=== PATIENT | female | born 1990 | race Caucasian/White ===

== ENCOUNTER 2017-09-08 10:10 | Inpatient (IN) | payer OTHER, BC ==
[~2017-09-08] VITALS: Ht 167.6 cm; Wt 75.9 kg
[2017-10-30] VITALS (47 sets, daily range): BP systolic 102–144; BP diastolic 56–100; PULSE 69–118; TEMP 98–98.5
[2017-10-30] MEDS ORDERED: PRENATAL (06:50)
[2017-10-30 07:40] LABS: BASO % 0.3 % (0.0-2.0); EOS # 0.1 (0.0-0.7); EOS % 0.5 % (0-4.0); GRAN # 9.1 (1.4-6.5); GRAN % 79.1 % (42.2-75.2); HEMATOCRIT 41.8 % (37.0-47.0); HEMOGLOBIN 14.7 g/dl (12.5-16.0); LYMPH # 1.5 (1.2-3.4); LYMPH % 13.2 % (20.0-51.0); MEAN CELL VOLUME 94 fl (80.0-100.0); MEAN CORPUSCULAR HEMOGLOBIN 33 pg (27.0-31.0); MEAN CORPUSCULAR HGB CONC 35 g/dl (33.0-37.0); MONO # 0.7 (0.1-0.6); MONO % 6.1 % (1.7-9.3); PLATELET COUNT 195 K/mm3 (130-400); RED BLOOD COUNT 4.47 M/mm3 (4.10-5.30); WHITE BLOOD COUNT 11.5 K/mm3 (4.8-10.8)
[2017-10-30] MEDS ORDERED: TYLENOL 500MG500 MG PO (07:40)
[2017-10-31 01:00] VITALS: BP 128/72; PULSE 87
[2017-10-31 07:00] VITALS: BP 110/68; PULSE 78; TEMP 97.3
[2017-10-31 11:30] VITALS: BP 105/67; PULSE 96; TEMP 98.2
[2017-10-31] MEDS ORDERED: MOTRIN 800800 MG/TAB PO (11:42)
[2017-10-31] MEDS ORDERED: PERCOCET 325 MG1 TA2 PO (11:42)
[2017-10-31 16:24] VITALS: BP 134/75; PULSE 16; TEMP 98
[2017-10-31 19:15] VITALS: BP 124/85; PULSE 91; TEMP 98.4
== END 2017-11-01 11:40 | disposition home or self-care (01) | DRG 775 ==
LOC: LDR 10-26 10:10 → OB 10-30 07:00
PROVIDERS: Obstetrics & Gynecology
PROC: 10E0XZZ Delivery of Products of Conception, External Approach (ICD-10-PCS; principal; 2017-10-30)
PROC: 0KQM0ZZ Repair Perineum Muscle, Open Approach (ICD-10-PCS; 2017-10-30)
PROC: 3E033VJ Introduction of Other Hormone into Peripheral Vein, Percutaneous Approach (ICD-10-PCS; 2017-10-30)
DX: O48.0 Post-term pregnancy (principal); O70.1 Second degree perineal laceration during delivery; O75.89 Other specified complications of labor and delivery; Z3A.40 40 weeks gestation of pregnancy; Z37.0 Single live birth
CPT/HCPCS: J2210; J2590; J7120

== ENCOUNTER 2019-12-30 07:07 | Inpatient (IN) | payer BC ==
[2019-12-30] VITALS (33 sets, daily range): BP systolic 97–144; BP diastolic 57–84; PULSE 72–117; TEMP 97.5–98.7
[~2019-12-30] VITALS: Ht 167.6 cm; Wt 76.4 kg
[~2019-12-30 07:07] MED LIST: MOTRIN 800800 MG/TAB PO; PERCOCET 325 MG1 TA2 PO; PRENATAL; TYLENOL 500MG500 MG PO
--- NOTE | 2019-12-30 07:10 | NUR ---
0710- Patient arrives ambulatory with spouse for scheduled induction of labor. Patient reports occasional contractions, denies ROM or vaginal bleeding, and reports normal movement. Patient changes into gown, EFM explained and applied. VS obtained. Reviewed plan of care for induction, patient denies questions and agrees. 0725- IV started in LFA, labs obtained. LR infusing per protocol. Assessment completed. Consents explained and signed. Patient denies questions. 0800- Reactive, category 1 FHR strip obtained. Pitocin started at 2 mU per protocol and order. Will continue to monitor. Call light in reach.
[2019-12-30] MEDS ORDERED: OSCAL 500 TAB500 MG PO (07:58)
--- NOTE | 2019-12-30 08:10 | NUR ---
Dr. Yu at bedside, reviews FHR strip. Discussing AROM, patient agrees. SVE per provider -0. AROM by Dr. Yu for small amount of clear fluid. Pericare given and patient updated on plan of care.
[2019-12-30 08:22] LABS: BASO % 0.4 % (0.0-2.0); EOS # 0.1 (0.0-0.7); EOS % 0.5 % (0-4.0); GRAN # 8.5 (1.4-6.5); GRAN % 75.8 % (42.2-75.2); HEMATOCRIT 36.7 % (37.0-47.0); HEMOGLOBIN 12.1 g/dl (12.5-16.0); LYMPH # 1.7 (1.2-3.4); MEAN CELL VOLUME 88 fl (80.0-100.0); MEAN CORPUSCULAR HEMOGLOBIN 29 pg (27.0-31.0); MEAN CORPUSCULAR HGB CONC 33 g/dl (33.0-37.0); MONO # 0.8 (0.1-0.6); MONO % 7.4 % (1.7-9.3); PLATELET COUNT 227 K/mm3 (130-400); RED BLOOD COUNT 4.17 M/mm3 (4.10-5.30); REDCELL DISTRIBUTION WIDTH-CV 14.2 % (11.5-14.5)
--- NOTE | 2019-12-30 10:20 | NUR ---
SVE /0. Patient requesting epidural at this time. LR bolus infusing, Jony Haney MEMBERSHIP SALES MANAGER notified.
--- NOTE | 2019-12-30 10:35 | NUR ---
1035- Patient sitting upright in bed for epidural placement. Jony Haney CLAIM TRAINEE at bedside. 1047- Test dose via epidural given per Jony Haney CLAIM TRAINEE. Patient tolerates well, no adverse reactions noted. See anesthesia record. 1050- Patient repositioned WL following epidural placement. Updated on plan of care, safety reviewed.
[2019-12-30] MEDS ORDERED: MOTRIN 800800 MG/TAB PO (12:18)
--- NOTE | 2019-12-30 12:42 | NUR ---
GUY AL/+2. Pericare given and Dr. Yu notified and requested for impending delivery. RN remains at bedside. Patient comfortable with epidural.
--- NOTE | 2019-12-30 13:10 | NUR ---
1310- Dr. Yu at bedside. SVE per provider 2. Lundberg catheter removed prior to pushing, patient assisted to footplates. Nursery RN to bedside. 1314- Patient begins pushing with contractions with physician at bedside. Moves vertex well. 1318- of viable male infant attended by Dr. Yu. to mother's abdomen, then to warmer for assessment. Care of to Alicia SIFUENTES. Apgars 8//9. 1320- Spontaneous delivery of placenta. Pitocin bolus started at 333ml/hr/protocol. Fundal massage by RN, moderate amount of free flow noted initally, WNL following massage. Second degree perineal laceration and bilateral labial lacerations repaired by physician, patient tolerates well. Pericare given and ice pack applied. Patient updated on plan of care and safety reviewed. Call light within reach.
[2019-12-31 08:10] VITALS: BP 122/81; PULSE 110; TEMP 98
--- NOTE | 2019-12-31 09:48 | NUR ---
Initial visit; Mom thanked for offering congratulations for the of her son. Stewarding Supervisor thanked family for choosing [facility].
[2019-12-31 12:00] VITALS: BP 112/65; PULSE 86; TEMP 97.4
== END 2019-12-31 15:30 | disposition home or self-care (01) | DRG 807 ==
LOC: LDR 07:07 → OB 07:07 → LDR 12:54 → OB 15:36
PROVIDERS: ADMIT Obstetrics & Gynecology
PROC: 10E0XZZ Delivery of Products of Conception, External Approach (ICD-10-PCS; principal; 2019-12-30)
PROC: 0KQM0ZZ Repair Perineum Muscle, Open Approach (ICD-10-PCS; 2019-12-30)
PROC: 0UQMXZZ Repair Vulva, External Approach (ICD-10-PCS; 2019-12-30)
PROC: 10907ZC Drainage of Amniotic Fluid, Therapeutic from Products of Conception, Via Natural or Artificial Opening (ICD-10-PCS; 2019-12-30)
PROC: 3E033VJ Introduction of Other Hormone into Peripheral Vein, Percutaneous Approach (ICD-10-PCS; 2019-12-30)
DX: O48.0 Post-term pregnancy (principal); Z37.0 Single live birth; O70.1 Second degree perineal laceration during delivery; Z3A.40 40 weeks gestation of pregnancy
CPT/HCPCS: J2590; J7120